=== PATIENT | female | born 1985 | race Caucasian/White ===

== ENCOUNTER 2018-11-23 07:02 | Inpatient (IN) | payer MEDICAID ==
[2018-11-23 08:41] LABS: ADD MAN DIFF? NO
[2018-11-23 08:42] LABS: WHITE BLOOD COUNT 7.6 10^3/ul (4.8-10.8)
[2018-11-23 08:43] LABS: BASOPHILS % 0.3 % (0.0-2.0); EOSINOPHILS # 0.1 10^3/ul (0.0-0.5); EOSINOPHILS % 1.2 % (0.0-7.0); HEMATOCRIT 36.4 % (37.0-47.0); HEMOGLOBIN 12.1 g/dl (12.0-16.0); LYMPHOCYTES # 1.7 10^3/ul (0.8-2.9); MEAN CORPUSCULAR HGB CONC 33.2 g/dl (32.0-37.0); MEAN CORPUSCULAR VOLUME 93.3 fl (82.0-101.0); MEAN PLATELET VOLUME 12.2 fl (7.4-10.4); MONOCYTE # 0.6 10^3/ul (0.3-0.9); MONOCYTES % 7.3 % (0.0-11.0); NEUTROPHIL # 5.2 10^3/ul (1.6-7.5); NEUTROPHILS % 68.2 % (39.0-77.0); PLATELET COUNT 214 10^3/UL (140-415); RED CELL DISTRIBUTION WIDTH 13.5 % (11.5-14.5)
[2018-11-23] MEDS: LACTATED RINGER'S 1,000 ML IV ×3 (09:53→23:14)
[2018-11-24] MEDS: LACTATED RINGER'S 1,000 ML IV ×2 (06:27→15:26)
[2018-11-24] MEDS ORDERED: BUTORPHANOL 2 MG INJ IV ×2 (11:00)
[2018-11-24] MEDS ORDERED: LIDOCAINE 1% (MPF) 30 ML INJ INJ (11:00)
[2018-11-24] MEDS ORDERED: OXYTOCIN 30 UNITS/LR 500 ML IV (11:00)
[2018-11-24] MEDS ORDERED: CARBOPROST 250 MCG INJ IM (11:00)
[2018-11-24] MEDS ORDERED: METHYLERGONOVINE 0.2 MG INJ IM (11:00)
[2018-11-24] MEDS ORDERED: MISOPROSTOL 200 MCG TAB PR (11:00)
[2018-11-24 12:35] LABS: ADD MAN DIFF? NO; BASOPHILS % 0.2 % (0.0-2.0); EOSINOPHILS # 0.1 10^3/ul (0.0-0.5); EOSINOPHILS % 1.1 % (0.0-7.0); HEMATOCRIT 34.3 % (37.0-47.0); HEMOGLOBIN 11.3 g/dl (12.0-16.0); LYMPHOCYTES # 1.7 10^3/ul (0.8-2.9); LYMPHOCYTES % 25.9 % (15.0-51.0); MEAN CORPUSCULAR HEMOGLOBIN 30.3 pg (29.0-33.0); MEAN CORPUSCULAR HGB CONC 32.9 g/dl (32.0-37.0); MONOCYTE # 0.6 10^3/ul (0.3-0.9); MONOCYTES % 8.4 % (0.0-11.0); NEUTROPHIL # 4.2 10^3/ul (1.6-7.5); NEUTROPHILS % 63.6 % (39.0-77.0); PLATELET COUNT 201 10^3/UL (140-415); RED BLOOD COUNT 3.73 10^6/ul (4.20-5.40); RED CELL DISTRIBUTION WIDTH 13.6 % (11.5-14.5)
[2018-11-24 12:35] LABS: WHITE BLOOD COUNT 6.6 10^3/ul (4.8-10.8)
[2018-11-24 12:58] LABS: INR 0.96; PROTIME 12.9 Sec (11.9-14.9)
[2018-11-24 12:59] LABS: PARTIAL THROMBOPLASTIN TIME 27.9 Sec (23.0-35.0)
[2018-11-24 13:25] LABS: HEPATITIS B SURFACE ANTIGEN NEGATIVE (NEGATIVE)
[2018-11-24 14:27] LABS: ALANINE AMINOTRANSFERASE 20 IU/L (13-69); ALBUMIN 3.4 g/dl (3.3-4.9); ALBUMIN/GLOBULIN RATIO 1.09; ALKALINE PHOSPHATASE 104 IU/L (42-121); ANION GAP 7 (5-13); ASPARTATE AMINO TRANSFERASE 22 IU/L (15-46); BILIRUBIN,INDIRECT 0.3 mg/dl (0-1.1); BILIRUBIN,TOTAL 0.3 mg/dl (0.2-1.3); BLOOD UREA NITROGEN 7 mg/dl (7-20); CALCIUM 9.2 mg/dl (8.4-10.2); CARBON DIOXIDE 21 mmol/L (21-31); CHLORIDE 109 mmol/L (97-110); CREATININE 0.35 mg/dl (0.44-1.00); Estimated GFR > 60 mL/min (>60); GLUCOSE 85 mg/dl (70-220); POTASSIUM 3.9 mmol/L (3.5-5.1); SODIUM 137 mmol/L (135-144); TOTAL PROTEIN 6.5 g/dl (6.1-8.1); URIC ACID 3.8 mg/dl (3.1-7.9)
[2018-11-24] MEDS: AMPICILLIN 2 GM/NS (PMX) 100 ML IV (15:27)
[2018-11-24] MEDS: AMPICILLIN 1 GM/NS (PMX) 50 ML IV ×2 (17:23→22:08)
[2018-11-24 20:30] LABS: RAPID PLASMA REAGIN NONREACTIVE (NR)
[2018-11-25] MEDS ORDERED: FENTAnyl 2MCG/ML-ROPIV 0.2% 100 ML (01:18)
[2018-11-25] MEDS: LACTATED RINGER'S 1,000 ML IV ×4 (01:25→19:36)
[2018-11-25] MEDS ORDERED: NALOXONE (0.4 MG/ML) INJ IV (01:30)
[2018-11-25] MEDS ORDERED: ONDANSETRON 4 MG INJ IV (01:30)
[2018-11-25] MEDS ORDERED: DIPHENHYDRAMINE 50 MG INJ IV (01:30)
[2018-11-25] MEDS: AMPICILLIN 1 GM/NS (PMX) 50 ML IV ×7 (02:00→23:00)
[2018-11-25] MEDS: FENTAnyl 2MCG/ML-ROPIV 0.2% 100 ML BAG EPI ×2 (10:03→18:32)
[2018-11-25] MEDS: MISOPROSTOL 50 MCG CAPSULE PO ×2 (10:40→14:28)
[2018-11-25] MEDS: OXYTOCIN 30 UNITS/LR 500 ML IV (18:50)
[2018-11-25] MEDS ORDERED: MINERAL OIL LIGHT 10 ML VIAL TOP (22:30)
[2018-11-26] MEDS: LACTATED RINGER'S 1,000 ML IV ×3 (00:55→04:53)
[2018-11-26] MEDS: FENTAnyl 2MCG/ML-ROPIV 0.2% 100 ML BAG EPI (03:00)
[2018-11-26] MEDS: AMPICILLIN 1 GM/NS (PMX) 50 ML IV (03:07)
[2018-11-26] MEDS: MINERAL OIL LIGHT 10 ML VIAL TOP (04:52)
[2018-11-26] MEDS: OXYTOCIN 30 UNITS/LR 500 ML IV ×2 (04:54→04:55)
[2018-11-26] MEDS: IBUPROFEN 600 MG TAB PO ×4 (05:53→23:24)
[2018-11-26] MEDS ORDERED: METHYLERGONOVINE 0.2 MG INJ IM (07:00)
[2018-11-26] MEDS ORDERED: CARBOPROST 250 MCG INJ IM (07:00)
[2018-11-26] MEDS ORDERED: OXYTOCIN 30 UNITS/LR 500 ML IV (07:00)
[2018-11-26] MEDS ORDERED: ACETAMINOPHEN 325 MG TAB PO (07:00)
[2018-11-26] MEDS ORDERED: DIBUCAINE 1% 30 GM OINT TOP (07:00)
[2018-11-26] MEDS ORDERED: MISOPROSTOL 200 MCG TAB PR (07:00)
[2018-11-26] MEDS: WITCH HAZEL/GLYCERIN PAD PR (08:27)
[2018-11-26] MEDS: SENNA/DOCUSATE NA (8.6MG/50MG) TAB PO ×2 (08:27→21:01)
[2018-11-26] MEDS: BENZOCAINE 20% 56 ML SPRAY TOP (08:27)
[2018-11-26] MEDS: HYDROCODONE/APAP (5/325) TAB PO ×3 (09:25→19:43)
[2018-11-26] MEDS: LACTATED RINGER'S 1,000 ML IV* (09:26)
[2018-11-26] MEDS: PETROLATUM 5 GM OINT TOP (18:00)
[2018-11-27 05:06] LABS: ADD MAN DIFF? NO
[2018-11-27 05:13] LABS: BASOPHILS % 0.4 % (0.0-2.0); EOSINOPHILS # 0.1 10^3/ul (0.0-0.5); EOSINOPHILS % 1.2 % (0.0-7.0); HEMATOCRIT 34.5 % (37.0-47.0); HEMOGLOBIN 11.5 g/dl (12.0-16.0); LYMPHOCYTES # 1.7 10^3/ul (0.8-2.9); LYMPHOCYTES % 19.1 % (15.0-51.0); MEAN CORPUSCULAR HEMOGLOBIN 31.3 pg (29.0-33.0); MEAN CORPUSCULAR HGB CONC 33.3 g/dl (32.0-37.0); MEAN CORPUSCULAR VOLUME 93.8 fl (82.0-101.0); MEAN PLATELET VOLUME 12.6 fl (7.4-10.4); MONOCYTE # 0.7 10^3/ul (0.3-0.9); MONOCYTES % 7.7 % (0.0-11.0); NEUTROPHIL # 6.4 10^3/ul (1.6-7.5); NEUTROPHILS % 70.9 % (39.0-77.0); PLATELET COUNT 211 10^3/UL (140-415); RED BLOOD COUNT 3.68 10^6/ul (4.20-5.40); RED CELL DISTRIBUTION WIDTH 13.3 % (11.5-14.5)
[2018-11-27] MEDS: IBUPROFEN 600 MG TAB PO ×3 (05:23→18:01)
[2018-11-27] MEDS: SENNA/DOCUSATE NA (8.6MG/50MG) TAB PO (09:00)
[2018-11-27] MEDS: HYDROCODONE/APAP (5/325) TAB PO (09:23)
[2018-11-27] MEDS: ZINC OXIDE 13% (DESITIN) CREAM 2 OZ TUBE TOP (18:01)
[2018-11-28] MEDS ORDERED: DIPHTH/TET/ACEL PERTUSS (ADULT) 0.5 ML VIAL IM* (09:00)
== END 2018-11-27 18:54 | disposition home or self-care (01) | DRG 807 ==
LOC: OBT 07:02 → L-D 11-24 10:24 → MS1 11-26 06:31 → OBT 07:55 → L-D 07:55
PROVIDERS: Specialist
PROC: 10E0XZZ Delivery of Products of Conception, External Approach (ICD-10-PCS; principal; 2018-11-26)
DX: O80 Encounter for full-term uncomplicated delivery (principal); Z37.0 Single live birth; Z3A.38 38 weeks gestation of pregnancy
CPT/HCPCS: 62322; 76815; 76818; 80053; 84560; 85025; 85384; 85610; 85730; 86592; 86850; 86900; 86901; 87340